=== PATIENT | male | born 1995 | race African-American/Black ===

== ENCOUNTER 2018-06-23 13:14 | Emergency (ER) | payer OTHER ==
--- NOTE | 2018-06-23 14:16 | EDPHY ---
H & P Time Seen by Provider: 06/23/18 13:38 HPI/ROS: CHIEF COMPLAINT: Itching rash HISTORY OF PRESENT ILLNESS: 23-year-old male complaining of intermittent rapid onset highly pruritic rash for the past 2 weeks. None currently. This all started when he moved into a new apartment. He denies experiencing chest pain, dyspnea, abdominal pain, nausea, vomiting REVIEW OF SYSTEMS: 10 systems reviewed and negative with the exception of the elements mentioned in the history of present illness PAST MEDICAL & SURGICAL HISTORY: No pertinent medical or surgical history SOCIAL HISTORY:Daily marijuana smoking PHYSICAL EXAM (Prior to examination, patient consented to physical exam, hands were washed and my usual and customary physical exam procedures followed) 1) GENERAL: Well-developed, well-nourished, alert and oriented. Appears to be in no acute distress. 2) HEAD: Normocephalic, atraumatic 3) HEENT: Pupils equal, round, reactive to light bilaterally. Sclera anicteric. Nasopharynx, oropharynx, clear, no lesions. Moist Mucous membranes. 4) NECK: Full range of motion, no meningeal signs. 5) LUNGS: Clear auscultation bilaterally, no wheezes, no rhonchi, no retractions. 6) HEART: Regular rate and rhythm, no murmur, no heave, no gallop. 7) ABDOMEN: No guarding, no rebound, no focal tenderness, negative McBurney's, negative Macias's, negative Rovsing's, negative peritoneal sign, 8) MUSCULOSKELETAL: Moving all extremities, no focal areas of tenderness, no obvious trauma. No peripheral edema or discoloration. 9) BACK: No CVA tenderness, no midline vertebral tenderness, no fluctuance, no step-off, no obvious trauma, no visual or palpable abnormality. 10) SKIN: No rash, no petechiae. No urticaria 11) Psychiatric: Patient is oriented X 3, there is no agitation. DIFFERENTIAL DIAGNOSIS: In no particular order including but not limited to scabies, contact dermatitis, urticaria Smoking Status: Current some day smoker Constitutional: Initial Vital Signs Temperature (C) 36.5 C 06/23/18 13:33 Heart Rate 72 06/23/18 13:33 Respiratory Rate 16 06/23/18 13:33 Blood Pressure 150/87 H 06/23/18 13:33 O2 Sat (%) 97 06/23/18 13:33 O2 Delivery Mode Room Air Allergies/Adverse Reactions: shellfish derived Allergy (Verified 06/23/18 13:33) Home Medications: Medication Instructions Recorded predniSONE [Prednisone] 20 mg PO DAILY 5 Days #5 tablet 06/23/18 MDM/Departure - [facility] ED Course/Re-evaluation: Patient is currently asymptomatic. We discussed more than likely urticaria. Contact dermatitis not ruled out. I recommend he evaluate any potential allergens in his life and remove these. I am starting the patient on low-dose prednisone, 20 mg, for the next 5 days, also recommend Benadryl and Pepcid. No evidence of anaphylaxis. No evidence of cellulitis. He feels comfortable being discharged. Given acute return precautions. Patient feels comfortable being discharged. All questions and concerns addressed by myself. Patient given my usual and customary discharge precautions and instructions regarding their clinical impression. Care of patient under supervision of secondary supervising physician Dr Ortega . - Depart Disposition: Home, Routine, Self-Care Clinical Impression: Urticaria Condition: Good Instructions: Urticaria (ED) Additional Instructions: Attempt to identify any possible allergens in your life and remove these. Seek immediate medical attention if you develop chest pain, shortness of breath, or any other symptoms that concern you. Prescriptions: predniSONE [Prednisone] 20 mg PO DAILY 5 Days #5 tablet Referrals: [facility],. [Clinic] - As per Instructions
[2018-06-23 14:34] VITALS: BP 140/98
== END 2018-06-23 14:32 | disposition home or self-care (01) ==
DX: L50.9 Urticaria, unspecified (principal)

== ENCOUNTER 2018-07-10 15:45 | Emergency (ER) | payer OTHER ==
[2018-07-10 15:51] VITALS: BP 153/91
--- NOTE | 2018-07-10 16:24 | EDPHY ---
H & P Time Seen by Provider: 07/10/18 16:08 HPI/ROS: CHIEF COMPLAINT: Bump on ring finger HISTORY OF PRESENT ILLNESS: The patient is a 23-year-old male presents emergency department the bump on his right 4th digit. The bump has been present for 6 months. It is bothering him due to the size. He has had no finger redness. No fevers or chills. No significant pain. No trauma. REVIEW OF SYSTEMS: Negative Past Medical/Surgical History: Negative Smoking Status: Current some day smoker Physical Exam: Vitals noted General Appearance: Alert and no distress. Head: Pupils equal. Normal. Respiratory: No respiratory distress. Cardiac: regular rate and rhythm. Extremities: Patient has a bump on the base of his right ring finger. This is on the dorsal aspect. It is mobile. He has full range of motion of his finger. Neurovascular intact distally. No erythema or warmth.]. Skin: No rashes or lesions. Neuro: Alert. Normal mood and affect. Constitutional: Initial Vital Signs Temperature (C) 36.6 C 07/10/18 15:48 Heart Rate 63 07/10/18 15:48 Respiratory Rate 16 07/10/18 15:48 Blood Pressure 153/91 H 07/10/18 15:48 O2 Sat (%) 99 07/10/18 15:48 O2 Delivery Mode Room Air Allergies/Adverse Reactions: shellfish derived Allergy (Verified 07/10/18 15:48) Home Medications: Medication Instructions Recorded Benadryl 07/10/18 Medical Decision Making ED Course/Re-evaluation: In the emergency department I discussed possible etiologies with the patient. I discussed that this did not need emergent drainage in the emergency department. I discussed reaccumulation with drainage. I recommended he follow up with the hand specialist. He was given contact information. I answered all his questions. He was given warnings prior to leaving. Differential Diagnosis: My differential includes but is not limited to ganglion cyst, cyst, abscess, cellulitis Departure - Departure Disposition: Home, Routine, Self-Care Clinical Impression: Ganglion cyst Condition: Good Instructions: Ganglion Cysts (ED) Additional Instructions: You should follow-up with a hand specialist. Call to make an appointment. Return if this becomes red, painful or you develop a fever. Referrals: Tien Goncalves MD [Medical Doctor] - 5-7 days, call for appt.
== END 2018-07-10 16:35 | disposition home or self-care (01) ==
DX: M67.441 Ganglion, right hand (principal)